=== PATIENT | female | born 1965 | race Caucasian/White ===

== ENCOUNTER 2017-05-03 07:50 | Emergency (ER) | payer MEDICAID ==
[2017-05-03] MEDS ORDERED: Sodium Chloride 0.9% 1,000 ML IV ONE (08:32)
[2017-05-03] MEDS ORDERED: HYDROmorphone 1 mg/mL 1mL Syr IVP STA (08:33)
--- NOTE | 2017-05-03 08:36 | ED Physician Chart ---
History of Present Illness - General Chief Complaint: Abdominal Pain Stated Complaint: ABDOMINAL PAIN - History of Present Illness Allergies/Adverse Reactions: Allergies No Known Allergies Allergy (Verified 05/03/17 07:59) Home Medications: Ambulatory Orders NK [No Home Meds] 05/03/17 Past History - Social History Smoking Status: Never smoker Hx Alcohol Use: No Hx Drug Use: No
[2017-05-03] MEDS ORDERED: HYDROmorphone 1 mg/mL 1mL Syr ONE (08:39)
--- NOTE | 2017-05-03 08:42 | ED Physician Chart ---
Chief Complaint/HPI - Patient Information Date Seen:: 05/03/17 Time Seen:: 08:15 Chief Complaint:: epigast. pain History of Present Illness:: 52 yo woman with abd. pain since last PM. Many previous episodes. Known gall stones. Nausea or vomit this AM No fever. Allergies:: Allergies Allergy/AdvReac Type Severity Reaction Status Date / Time No Known Allergies Allergy Verified 05/03/17 07:59 Vitals:: Vital Signs - 8 hr 05/03/17 08:00 Temp 97.7 F HR 72 RR 15 BP 153/97 O2 Sat % 98 Historian:: Patient Review of Systems - Review of Systems General/Constitutional: No fever Skin: No skin lesions Head: No headache Eyes: No loss of vision ENT: No earache, No sore throat Neck: No neck pain Cardio Vascular: No chest pain, No palpitations Pulmonary: No SOB, No cough GI: Nausea G/U: No dysuria Musculoskeletal: No bone or joint pain Neurological: No syncope, No focal symptoms Past Medical History - Past Medical History Past Medical History: Other (known hx gall stones. No surg. Hx hepatitis C) Family History: None Social History: Non Smoker, Alcohol Surgical History: Medication: None Physical Exam - Physical Examination General/Constitutional: Awake, Well-developed, well-nourished, Alert, No distress, GCS 15 Head: Atraumatic Eyes: Lids, conjuctiva normal, PERRL, EOMI Skin: Nl inspection ENMT: TM canals nl, Oropharynx nl Neck: Nontender Respiratory: Nl effort/Exclusion, Clear to Auscultation, No Wheeze/Rhonchi/Rales Cardio Vascular: RRR, No murmur, gallop, rubs Extremities: No tenderness or effusion Neuro/Psych: Alert/oriented, No focal deficits Labs/Radiology/EKG Results - Lab Results Results: US per rad.: 2.7 cm stone seen at GB neck & calcification seen at fundus. CBC entirely nl., WBC = 7.6 CMP shows K of 3.4 and gluc 124. Renal functions nl. SGPT and SGOT are 106 and 132 respectively. Pt. has no urinary sx's. Explained to her that she has gall stone and will need surg. eventually. Also explained elevated liver functions. Pt. has hx of hepatitis C. ED Septic Shock - . Is Septic Shock (SBP<90, OR Lactate>4 mmol\L) present?: No - <6hrs of presentation: Vital Signs: Vital Signs - 8 hr 05/03/17 08:00 Temp 97.7 F HR 72 RR 15 BP 153/97 O2 Sat % 98 Reassessment (Disposition) - Reassessment Reassessment Condition:: Improved - Aftercare/Follow up Instructions Aftercare/Follow-Up Instructions:: Counseled pt regarding lab results/diagnosis & need follow up Notes:: Described dietary precautions: avoid fried, fatty, greasy, meats, cheese and other dairy. Need for follow-up and eventual surgery. Medication Prescribed:: Rx: Davis 5/325 one po q4h prn. No driving. Disp. #12. No refill. - Patient Disposition Condition at Disposition:: Improved ED Discharge Plan - Patient Disposition Admit/Discharge/Transfer: PT DISCHARGED HOME Condition at Disposition: Improved
[2017-05-03 08:46] LABS: % BASOPHILS 0.5 % (0.0-2.0); % EOSINOPHILS 3.7 % (0.0-5.0); % LYMPHOCYTES 20.7 % (20.0-50.0); % MONOCYTES 6.9 % (2.0-10.0); % NEUTROPHILS 68.2 % (40.0-80.0); HEMATOCRIT 44.5 % (35.0-45.0); HEMOGLOBIN 14.5 gm/dL (11.7-15.5); MEAN CORPUSCULAR HEMOGLOBIN 30.1 pg (27.0-31.0); MEAN CORPUSCULAR HGB CONC 32.7 pg (28.0-36.0); MEAN PLATELET VOLUME 6.6 fl; NEUTROPHILE ABSOLUTE 5.2 Th/cmm (1.8-8.0); PLATELET COUNT 227 Th/cmm (150-400); RED BLOOD COUNT 4.84 Mil/cmm (3.80-5.10); RED CELL DISTRIBUTION WIDTH 12.2 % (11.5-20.0); WHITE BLOOD COUNT 7.6 Th/cmm (4.8-10.8)
[2017-05-03 09:12] LABS: ALB/GLOB RATIO 1.4 (1.0-1.8); ALKALINE PHOSPHATASE 81 U/L (34-104); ANION GAP 5.8 (7.0-16.0); BILIRUBIN,TOTAL 0.9 mg/dL (0.3-1.0); BUN - UREA NITROGEN 16 mg/dL (7-25); BUN/CREATININE RATIO 26.7; CALCIUM SERUM 9.5 mg/dL (8.6-10.3); CARBON DIOXIDE 26.6 mEq/L (21.0-31.0); CHLORIDE 108 mEq/L (98-107); CREATININE - SERUM 0.6 mg/dL (0.6-1.2); GLUCOSE 124 mg/dL (70-105); POTASSIUM SERUM 3.4 mEq/L (3.5-5.1); SGOT 106 U/L (13-39); SGPT/ALT 132 U/L (7-52); SODIUM SERUM 137 mEq/L (136-145)
--- NOTE | 2017-05-03 10:38 | Diagnostic Imaging Report ---
Ultrasound abdomen limited History: Abdominal pain Comparison: None Technique/procedure: Sonography right upper quadrant was performed in multiple planes. A gallstone is noted measuring 2.5 x 2.7 cm along the neck of the gallbladder. Additional calcifications are seen along the fundus portion of the gallbladder possibly representing small gallstones. There may be a small amount of gallbladder sludge. The gallbladder wall measures 3 mm. The common bile measures 5 mm. IMPRESSION: Cholelithiasis with stone noted along the neck of the gallbladder. Additional small calcifications are seen along the fundal portion of the gallbladder which may represent small gallstones. Borderline prominent gallbladder wall. No evidence of pericholecystic fluid. Please correlate clinically. The common bile duct measures 5 mm.
== END 2017-05-03 11:52 | disposition home or self-care (01) ==
LOC: ER 07:50
DX: R10.13 Epigastric pain (principal)
CPT/HCPCS: 99285; 96374; 96375; 76705; 36415; 85025; 83690; 80053; J2405; J1170; J7030